=== PATIENT | male | born 1990 | race African-American/Black ===

== ENCOUNTER 2019-03-10 21:44 | Emergency (ER) | payer OTHER ==
--- NOTE | 2019-03-10 22:13 | ER Document Report ---
ED Medical Screen (RME) - General Stated Complaint: REPORTS HIGH BLOOD SUGAR Time Seen by Provider: 03/10/19 22:09 Primary Care Provider: LARRY BRAVO [Primary Care Provider] - Follow up as needed Mode of Arrival: Ambulatory Information source: Patient Notes: Patient presents emergency department with complaints of urinary frequency increased thirst. Reports he has a history of diabetes is supposed to take insulin and some pill but has not been taking them. He quit taking his insulin because he said it made his vision blurry. Denies fever vomiting diarrhea. Is not sure what his blood sugar has been. I have greeted and performed a rapid initial assessment of this patient. A comprehensive ED assessment and evaluation of the patient, analysis of test results and completion of the medical decision making process will be conducted by additional ED providers. Dictation of this chart was performed using voice recognition software; therefore, there may be some unintended grammatical errors. - Related Data Allergies/Adverse Reactions: No Known Allergies Allergy (Verified 10/17/12 04:47) Past Medical History - Immunizations Hx Diphtheria, Pertussis, Tetanus Vaccination: No Doctor's Discharge - Discharge Referrals: LARRY BRAVO [Primary Care Provider] - Follow up as needed
[2019-03-10] MEDS ORDERED: NORMAL SALINE 1000 ML 1,000 ML IV ONE (22:25)
[2019-03-10 22:52] LABS: APPEARANCE,URINE CLEAR; BILIRUBIN,URINE NEGATIVE (NEGATIVE); COLOR,URINE STRAW; GLUCOSE, URINE >=500 mg/dL (NEGATIVE); KETONES,URINE NEGATIVE (NEGATIVE); LEUKOCYTE ESTERASE,URINE NEGATIVE (NEGATIVE); NITRITE,URINE NEGATIVE (NEGATIVE); PROTEIN,URINE NEGATIVE (NEGATIVE); URINE SPECIFIC GRAVITY 1.036; UROBILINOGEN,URINE NEGATIVE mg/dL (<2.0)
[2019-03-10 23:19] LABS: VENOUS BLOOD BASE EXCESS 1.3 mmol/L; VENOUS BLOOD HCO3 27.5 mmol/L (20-32); VENOUS BLOOD PCO2 49.5 mmHg (35-63); VENOUS BLOOD PH 7.36 (7.30-7.42)
[2019-03-10] MEDS ORDERED: RINGERS SOLUTION,LACTATED 1,000 ML IV ONE (23:23)
[2019-03-10 23:24] LABS: ABSOLUTE EOSINOPHILS # (AUTO) 0.3 10^3/uL (0.0-0.6); ABSOLUTE LYMPHOCYTES (AUTO) 3.4 10^3/uL (0.5-4.7); ABSOLUTE MONOCYTES (AUTO) 0.8 10^3/uL (0.1-1.4); ABSOLUTE NEUT (AUTO) 7.2 10^3/uL (1.7-8.2); BASOPHILS % (AUTO) 0.4 % (0-2); EOSINOPHILS % (AUTO) 2.4 % (0-6); HEMATOCRIT 43.9 % (37.9-51.0); HEMOGLOBIN 14.7 g/dL (13.5-17.0); MEAN CORPUSCULAR HEMOGLOBIN 25.8 pg (27.0-33.4); MEAN CORPUSCULAR HGB CONC 33.5 g/dL (32.0-36.0); MEAN CORPUSCULAR VOLUME 77 fl (80-97); MONOCYTES % (AUTO) 6.6 % (3-13); PLATELET COUNT 221 10^3/uL (150-450); RED BLOOD COUNT 5.69 10^6/uL (4.35-5.55); RED CELL DISTRIBUTION WIDTH 14.6 % (11.5-14.0); SEGMENTED NEUTROPHILS % (AUTO) 61.6 % (42-78); TOTAL CELLS COUNTED % (AUTO) 100 %; WHITE BLOOD COUNT 11.7 10^3/uL (4.0-10.5)
[2019-03-10 23:37] LABS: ALKALINE PHOSPHATASE 158 U/L (38-126); ANION GAP 10 (5-19); ASPARTATE AMINO TRANSFERASE 12 U/L (17-59); BILIRUBIN,DIRECT 0.2 mg/dL (0.0-0.4); BILIRUBIN,TOTAL 0.6 mg/dL (0.2-1.3); BLOOD UREA NITROGEN 7 mg/dL (7-20); CARBON DIOXIDE 30 mmol/L (22-30); CHLORIDE 96 mmol/L (98-107); GLUCOSE 396 mg/dL (75-110)
[2019-03-10] MEDS ORDERED: INSULIN REG, HUMAN 100 UNIT/ML 3 ML VIAL (PYX) IV ONE (23:57)
--- NOTE | 2019-03-11 00:14 | ER Document Report ---
ED Blood Sugar Problem - General Chief Complaint: High Blood Sugar Stated Complaint: REPORTS HIGH BLOOD SUGAR Time Seen by Provider: 03/10/19 22:09 Primary Care Provider: LARRY BRAVO [NO LOCAL MD] - Follow up as needed Mode of Arrival: Ambulatory Notes: Patient is a 29-year-old male history of type 2 diabetes presents to the emergency department because he has run out of his diabetic medications. Patient states he has been approximately 3 months without his medications. States he typically goes to the [facility] for treatments. States he did complain of some increase in thirst and urinary frequency but is denying any dysuria or penile discharge. He is denying any nausea, vomiting, diarrhea, fevers. He is denying any abdominal pain. States he does not like taking insulin because it "affected my vision." Patient's denying any changes in vision currently. Patient states he was on metformin 500 mg twice daily. Patient is unsure of what insulin and how much he was taking. TRAVEL OUTSIDE OF THE [place] IN LAST 30 DAYS: No - Related Data Allergies/Adverse Reactions: No Known Allergies Allergy (Verified 10/17/12 04:47) Past Medical History - General Information source: Patient - Social History Smoking Status: Current Every Day Smoker Chew tobacco use (# tins/day): No Frequency of alcohol use: Rare Family History: None Patient has suicidal ideation: No Patient has homicidal ideation: No - Immunizations Hx Diphtheria, Pertussis, Tetanus Vaccination: No Review of Systems - Review of Systems Constitutional: denies: Fever EENT: No symptoms reported Cardiovascular: No symptoms reported Respiratory: No symptoms reported Gastrointestinal: See HPI Genitourinary: See HPI Male Genitourinary: No symptoms reported Musculoskeletal: No symptoms reported Skin: No symptoms reported Hematologic/Lymphatic: No symptoms reported Neurological/Psychological: No symptoms reported Physical Exam - Vital signs Vitals: Temp Pulse BP Pulse Ox 97.7 F 70 128/82 H 99 03/10/19 21:49 03/10/19 21:49 03/10/19 21:49 03/10/19 21:49 - Notes Notes: GENERAL: Alert, interacts well. No acute distress. HEAD: Normocephalic, atraumatic. EYES: Pupils equal, round, and reactive to light. Extraocular movements intact. ENT: Oral mucosa moist, tongue midline. NECK: Full range of motion. Supple. Trachea midline. LUNGS: Clear to auscultation bilaterally, no wheezes, rales, or rhonchi. No respiratory distress. HEART: Regular rate and rhythm. No murmur ABDOMEN: Soft, non-tender. Non-distended. Bowel sounds present in all 4 qu adrants. EXTREMITIES: Moves all 4 extremities spontaneously. No edema, normal radial and dorsalis pedis pulses bilaterally. No cyanosis. BACK: no cervical, thoracic, lumbar midline tenderness. No saddle anesthesia, normal distal neurovascular exam. NEUROLOGICAL: Alert and oriented x3. Normal speech. cranial nerves II through XII grossly intact PSYCH: Normal affect, normal mood. SKIN: Warm, dry, normal turgor. No rashes or lesions noted. Course - Re-evaluation Re-evalutation: 03/11/19 00:15 Laboratory 03/10/19 03/10/19 03/10/19 22:18 22:24 22:50 WBC 11.7 H RBC 5.69 H Hgb 14.7 Hct 43.9 MCV 77 L MCH 25.8 L MCHC 33.5 RDW 14.6 H Plt Count 221 Lymph % (Auto) 29.0 Ware % (Auto) 6.6 Eos % (Auto) 2.4 Baso % (Auto) 0.4 Absolute Neuts (auto) 7.2 Absolute Lymphs (auto) 3.4 Absolute Monos (auto) 0.8 Absolute Eos (auto) 0.3 Absolute Basos (auto) 0.0 Seg Neutrophils % 61.6 VBG pH VBG pCO2 VBG HCO3 VBG Base Excess Sodium Potassium Chloride Carbon Dioxide Anion Gap BUN Creatinine Est GFR ( Amer) Est GFR (MDRD) Non-Af Glucose POC Glucose 377 H Calcium Total Bilirubin Direct Bilirubin Neonat Total Bilirubin Neonat Direct Bilirubin Neonat Indirect Bili AST ALT Alkaline Phosphatase Total Protein Albumin Urine Color STRAW Urine Appearance CLEAR Urine pH 7.0 Ur Specific [place] 1.036 Urine Protein NEGATIVE Urine Glucose (UA) >=500 H Urine Ketones NEGATIVE Urine Blood NEGATIVE Urine Nitrite NEGATIVE Urine Bilirubin NEGATIVE Urine Urobilinogen NEGATIVE Ur Leukocyte Esterase NEGATIVE Urine WBC (Auto) 2 Urine RBC (Auto) 1 Squamous Epi Cells Auto <1 Urine Mucus (Auto) RARE Urine Ascorbic Acid NEGATIVE 03/10/19 03/10/19 22:50 22:50 WBC RBC Hgb Hct MCV MCH MCHC RDW Plt Count Lymph % (Auto) Ware % (Auto) Eos % (Auto) Baso % (Auto) Absolute Neuts (auto) Absolute Lymphs (auto) Absolute Monos (auto) Absolute Eos (auto) Absolute Basos (auto) Seg Neutrophils % VBG pH 7.36 VBG pCO2 49.5 VBG HCO3 27.5 VBG Base Excess 1.3 Sodium 135.5 L Potassium 4.0 Chloride 96 L Carbon Dioxide 30 Anion Gap 10 BUN 7 Creatinine 0.61 Est GFR ( Amer) > 60 Est GFR (MDRD) Non-Af > 60 Glucose 396 H POC Glucose Calcium 10.0 Total Bilirubin 0.6 Direct Bilirubin 0.2 Neonat Total Bilirubin Not Reportable Neonat Direct Bilirubin Not Reportable Neonat Indirect Bili Not Reportable AST 12 L ALT 12 Alkaline Phosphatase 158 H Total Protein 7.0 Albumin 4.0 Urine Color Urine Appearance Urine pH Ur Specific [place] Urine Protein Urine Glucose (UA) Urine Ketones Urine Blood Urine Nitrite Urine Bilirubin Urine Urobilinogen Ur Leukocyte Esterase Urine WBC (Auto) Urine RBC (Auto) Squamous Epi Cells Auto Urine Mucus (Auto) Urine Ascorbic Acid Patient's labs do show hyperglycemia with no signs of acidosis. Discussed with patient refilling his metformin prescription. Also discussed following up with the [facility] or [facility] for his insulin dosing. Discussed close return precautions. At this time will discharge with return precautions and follow-up recommendations. Verbal discharge instructions given a the bedside and opportunity for questions given. Medication warnings reviewed. Patient is in agreement with this plan and has verbalized understanding of return precautions and the need for primary care follow-up in the next 24-72 hours. This medical record was dictated with voice recognizing software. There may be grammatical, syntax errors that are unintended. - Vital Signs Vital signs: Temp Pulse Resp BP Pulse Ox 97.7 F 70 128/82 H 99 03/10/19 21:49 03/10/19 21:49 03/10/19 21:49 03/10/19 21:49 - Laboratory Result Diagrams: 03/10/19 22:50 03/10/19 22:50 Laboratory results interpreted by me: 03/10/19 03/10/19 03/10/19 22:18 22:24 22:50 WBC 11.7 H RBC 5.69 H MCV 77 L MCH 25.8 L RDW 14.6 H Sodium Chloride Glucose POC Glucose 377 H AST Alkaline Phosphatase Urine Glucose (UA) >=500 H 03/10/19 22:50 WBC RBC MCV MCH RDW Sodium 135.5 L Chloride 96 L Glucose 396 H POC Glucose AST 12 L Alkaline Phosphatase 158 H Urine Glucose (UA) Discharge - Discharge Clinical Impression: Hyperglycemia due to type 2 diabetes mellitus Qualifiers: Diabetes mellitus mcc insulin use: without mcc use Qualified Code(s): E11.65 - Type 2 diabetes mellitus with hyperglycemia Condition: Stable Disposition: HOME, SELF-CARE Instructions: Hyperglycemia ([facility]) Additional Instructions: As we discussed you have been seen and treated in the emergency department for elevation in blood sugar. Is very important that you get your medications and take them as prescribed. Is also very important that you follow-up at the [facility] or [facility], phone numbers will be provided in this packet. Please return to the emergency room for any further concerns. Prescriptions: Metformin HCl [Glucophage 500 mg Tablet] 1,000 mg PO BID #60 tablet Referrals: LARRY BRAVO [NO LOCAL MD] - Follow up as needed [facility] [Provider Group] - Follow up as needed [facility] [Provider Group] - Follow up as needed [facility] [Provider Group] - Follow up as needed
[2019-03-11] MEDS ORDERED: INSULIN REG, HUMAN 100 UNIT/ML 3 ML VIAL (PYX) SUBCUT ONE (00:18)
[2019-03-11 02:19] VITALS: BP 123/76
== END 2019-03-11 02:10 | disposition home or self-care (01) ==
LOC: ER 21:44
DX: E11.65 Type 2 diabetes mellitus with hyperglycemia (principal); F17.200 Nicotine dependence, unspecified, uncomplicated
CPT/HCPCS: 99283; 96360; 96361; 36415; 82962; 85025; 80053; 81001; 82803; J1815; J7030; J7120